=== PATIENT | female | born 1970 | race Caucasian/White ===

== ENCOUNTER 2022-05-03 10:31 | Outpatient (REF) | payer OTHER, SELFPAY ==
[2022-05-03 18:45] LABS: Hemoglobin A1C 6.1 % (<5.7)
[2022-05-03 18:55] LABS: BUN 18 mg/dL (7-18); CREATININE 0.6 mg/dL (0.55-1.02); Calcium 9.4 mg/dL (8.5-10.1); Calculated LDL 138 mg/dL (<100); Chloride 104 mmol/L (98-107); Cholesterol 255 mg/dL (<200); Estimated GFR 108.61 (mL/min/1.73m2); Glucose 109 mg/dL (74-106); HDL Cholesterol 99 mg/dL (40-60); Potassium 4.5 mmol/L (3.5-5.1); Sodium 141 mmol/L (136-145); TSH (W/Ref FT4) 2.32 uIU/mL (0.36-3.74); Triglyceride 94 mg/dL (<150)
[2022-05-03 19:09] LABS: Vitamin D 25 Total 35.3 ng/mL (30-100)
== END 2022-05-03 10:32 | disposition home or self-care (01) ==
LOC: NCHCN 10:31
PROVIDERS: Visit Provider Family Medicine
DX: R73.01 Impaired fasting glucose (principal); E55.9 Vitamin D deficiency, unspecified; R94.6 Abnormal results of thyroid function studies; G47.00 Insomnia, unspecified; Z85.43 Personal history of malignant neoplasm of ovary; R79.89 Other specified abnormal findings of blood chemistry
CPT/HCPCS: 80048; 80061; 82306; 83036; 84443

== ENCOUNTER 2023-11-19 12:57 | Outpatient (CLI) | payer OTHER, SELFPAY ==
--- NOTE | 2023-11-19 | DI.RAD_ITS ---
Exam(s) XR CHEST 2V PA LATERAL EXAM: XR CHEST 2V PA LATERAL CLINICAL HISTORY: HEMOPTYSIS, R04.2. TECHNIQUE: 2D digital imaging was performed. COMPARISON: No exams were available for comparison FINDINGS: 2 views: Heart size is normal. The mediastinum is not widened. Lungs are clear. No infiltrates nor pleural effusions. IMPRESSION: No acute pulmonary findings. DATA REPOSITORY: RADIATION DOSE DELIVERED:
== END 2023-11-19 13:17 ==
LOC: DI 12:58
PROVIDERS: Visit Provider Family Medicine
DX: R04.2 Hemoptysis (principal)
CPT/HCPCS: 71046

== ENCOUNTER 2024-04-07 01:07 | Outpatient (CLI) | payer OTHER, SELFPAY ==
--- NOTE | 2024-04-07 | DI.MAMMO_ITS ---
Exam(s) MAMMO SCREENING EXAM: MAMMO SCREENING CLINICAL HISTORY: SCREENING MAMMO Z12.31. TECHNIQUE: Bilateral full field digital CC and MLO mammographic images were obtained with 3D tomosyn thesis and utilizing computer aided detection (CAD). COMPARISON: There are no prior mammograms available for comparison. FINDINGS: In the right breast there is an asymmetric density-possible nodule located 4 cm in from the nipple on the CC view, slightly lateral of center, this finding measuring approximately 2.2 x 1.0 cm. No othe r right breast findings. The left breast there is a small presently benign-appearing microcalcification group located 8 cm in from the nipple. No other significant focal left breast findings. There is no significant architectural distortion nor skin thickening-retraction. IMPRESSION: There is an asymmetric nodular density in the right breast measuring approximately 2.2 x 1.0 cm. Spo t compression views and ultrasound recommended. BI-RADS Category 0 - Incomplete: Need additional imaging evaluation Breast Density - Category B - Scattered areas of fibroglandular density Breast density Category C or D implies that the patient has dense breast tissue. Dense breast tissue can make it harder to find cancer on a mammogram. Dense breast tissue is also associated with an incr eased risk of breast cancer. This information about the result of the mammogram report was provided to the patient to raise their awareness. Use this report when you speak with the patient about their risks for breast cancer, which includes their family history. At that time, you may recommend additional screening tests (Ultrasoun d or MRI) as these tests may add significant information. A negative radiographic report should not delay biopsy if a dominant or clinically suspicious mass is present. Up to ten percent of cancers are not identified on mammography. A negative report may reinforce clinical impression. Adenosis and dense breasts may obscure an underlying neoplasm. False positive reports average 6 to 10%. Patient will receive a letter notifying them of these results.
== END 2024-04-07 01:27 ==
LOC: DI 01:07
PROVIDERS: Visit Provider Family Medicine
DX: Z12.31 Encounter for screening mammogram for malignant neoplasm of breast (principal); R92.323 Mammographic fibroglandular density, bilateral breasts
CPT/HCPCS: 77063; 77067

== ENCOUNTER 2024-04-10 01:43 | Outpatient (CLI) | payer OTHER, SELFPAY ==
--- NOTE | 2024-04-10 | DI.US_ITS ---
Exam(s) MG MAMMO SCREEN CALL BACK UNI US BREAST RT COMPLETE EXAM: MG MAMMO SCREEN CALL BACK UNI RIGHT AND COMPLETE RIGHT BREAST ULTRASOUND CLINICAL HISTORY: 2.2 x 1.0 cm asymmetric nodular density 4 cm from nipple, rt breast. TECHNIQUE: Unilateral spot mammographic images obtained with 3D tomosynthesisand utilizing computer aided detection (CAD). . Complete RIGHT breast Ultrasound was also performed, including all 4 quadrants, the retroareolar dina on, and the ipsilateral axilla. COMPARISON: Prior mammograms were reviewed. This additional imaging was performed due to findings described on the recent screening mammogram of 04/07/2024. FINDINGS: DIAGNOSTIC MAMMOGRAM: Additional mammographic views performed todayreveals this nodule to persist. Biopsy marker clip is s een approximately 1 cm away from the nodule. Proceeded with ultrasound. COMPLETE RIGHT BREAST ULTRASOUND: Ultrasound performed today reveals a solitary finding at the 7 o'clock position which corresponds the finding on the mammogram.. This is a combination solid cystic lobulated nodule measuring approximat rosaura 1.6 x 0.8 cm. It exhibits neutral slightly decreased through transmission. There are no other focal findings in all 4 quadrants of the right breast. Scanning of the ipsilateral axilla reveals no significant adenopathy. IMPRESSION: 1. There is a 1.6 by 0.8 cm partially solid partially cystic nodule at 7 o'clock position of the rig ht breast seen on ultrasound which corresponds to finding on the mammogram. On the mammogram there is a biopsy marker clip approximately 1 cm from this nodule which apparently underwent biopsy over 10 y ears ago. Unfortunately all of the prior breast imaging studies were in [place] and over 10 years ago a nd the institution as apparently closed and prior images are not available. There has not been an int erval mammogram in at least 10 years. This patient is being followed for ovarian cancer at [facility] in [place] At this time I recommend ultrasound-guided core biopsy of this nodule at 7 o'clock position of the ri ght breast. The patient and her were informed of these findings and recommendations by myself prior to le aving the department today. Also called physician had [facility] this morning with above findings and recommendations . BI-RADS Category 4 - Suspicious Abnormality: Biopsy should be considered Breast Density - Category B - Scattered areas of fibroglandular density Breast density Category C or D implies that the patient has dense breast tissue. Dense breast tissue can make it harder to find cancer on a mammogram. Dense breast tissue is also associated with an incr eased risk of breast cancer. This information about the result of the mammogram report was provided to the patient to raise their awareness. Use this report when you speak with the patient about their risks for breast cancer, which includes their family history. At that time, you may recommend additional screening tests (Ultrasoun d or MRI) as these tests may add significant information. A negative radiographic report should not delay biopsy if a dominant or clinically suspicious mass is present. Up to ten percent of cancers are not identified on mammography. A negative report may reinforce clinical impression. Adenosis and dense breasts may obscure an underlying neoplasm. False positive reports average 6 to 10%. Patient will receive a letter notifying them of these results.
== END 2024-04-10 02:03 ==
PROVIDERS: PCP Family Medicine; Visit Provider Family Medicine
DX: Z12.31 Encounter for screening mammogram for malignant neoplasm of breast (principal); R92.323 Mammographic fibroglandular density, bilateral breasts
CPT/HCPCS: 76642; 77063; 77067

== ENCOUNTER 2024-04-15 01:08 | Outpatient (CLI) | payer OTHER, SELFPAY ==
--- NOTE | 2024-04-15 | DI.US_ITS ---
Exam(s) US NEEDLE LOCAL BREAST WO RAD EXAM: RT BREAST MASS, ULTRASOUND GUIDED BX COMPARISON: No exams were available for comparison TECHNIQUE: Ultrasound performed using standard protocol. FINDINGS: Sonography was provided for Dr. Jesse Melendez during the performance of a right breast biopsy. Please refer to the procedure report for complete details. DATA REPOSITORY:
--- NOTE | 2024-04-15 11:35 | BREAST_PTH ---
PATIENT: Trina Post LOC: [facility] U#:[id number] AGE/SX: 53/F ROOM: RE04/15/[address]: Jesse Melendez MD : 1970 BED: DIS: 04/15/2024 SPEC #: [id number] RECD: 04/15/24 12:29 STATUS: MAURICE REQ #: [id number] BATSHEVA: 04/15/24 11:[address]: Jesse Melendez DEPT: Surgical Specimen RECD BY: Elle Grover ENTERED: 04/15/24 12:32 SP TYPE: Breast OTHR DR: Jose Jacques Tissues: 1 - BREAST BX NEEDLE Procedures: GROSS AND MICRO LEVEL 4 Comments: [id number]
[2024-04-15] MEDS: Lidocaine 1% Pres-Free 5 ML VIAL IJ (13:30)
--- NOTE | 2024-04-15 16:29 | W.PROCNOTE ---
Date of service: 04/15/24 Time of Service: 11:50 Procedure Note Date of procedure: 04/15/24 Procedure: Core needle biopsy of right breast Surgeon/Proceduralist/Physician: Jesse Melendez Procedure Diagnosis: Right breast abnormality Procedure Indications: Trina is a 53-year-old woman who was noted to have a 2.2 x 1.0 cm asymmetric density in the right breast on routine screening mammography. This was confirmed with ultrasonography that demonstrated a solid and cystic lobulated nodule, and she was recommended to undergo biopsy for tissue diagnosis. Procedure Description: I met with Trina before the procedure, and explained the nature of core needle biopsy techniques with regards to breast lesions. I explained the risks and the benefits of the procedure, and she was able to provide consent. Next, a limited ultrasound of the right breast was performed by the photographic laboratory technician. Images appeared congruent with preprocedural imaging. Next, I prepped the area of the skin adjacent to the ultrasound probe, and raised a skin wheal using local anesthetic. I made a small skin incision, and advanced a 22 mm Bard core needle biopsy device to the periphery of the lesion. 4 core needle biopsies were performed of the lesion as surgical sales representative sample. Specimens were adequate, moved into formalin. The area of the biopsies was marked with a titanium clip, and gentle pressure was held over the biopsy site as a Band-Aid was used to dress the wound. Postprocedure instructions were explained to Trina, and I will contact her once the pathology results are available.
== END 2024-04-15 01:28 ==
LOC: DI 01:08
PROVIDERS: PCP Family Medicine; Visit Provider Surgery
DX: N60.31 Fibrosclerosis of right breast (principal); R92.30 Dense breasts, unspecified
CPT/HCPCS: 19083; 88305; 76942; J2003